=== PATIENT | female | born 1960 | race Caucasian/White ===

== ENCOUNTER → 2020-12-17 | Outpatient (CLI) | payer BC ==
--- NOTE | 2020-12-17 15:44 | REP ---
INDICATION: PAIN. COMPARISON: None. TECHNIQUE: Four views bilateral FINDINGS: Right foot: Mild degenerative change seen throughout the right foot. 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 There are large plantar and retrocalcaneal heel spurs. Left foot: Mild degenerative change seen throughout the left foot. There is a bipartite type 2 os navicular. Large plantar and retrocalcaneal spurs are present. IMPRESSION: Chronic changes seen bilateral <Electronically signed by Alexandre Chatman > 12/17/20 1807
--- NOTE | 2020-12-17 15:46 | REP ---
INDICATION: PAIN. COMPARISON: None. TECHNIQUE: Four views each hand FINDINGS: Right hand: There is mild to moderate asymmetric intra digital joint space narrowing particularly affecting the D IP joint of the digit. Where there is prominent marginal osteophytosis. Similar degenerative changes seen involving the interphalangeal joint of the 1st digit. Tiny marginal osteophytes are seen involving the D IP joints of the remainder of the digits. There are no shaylee marginal erosions. There is no periarticular osteopenia. There is no acute fracture. Degenerative changes seen involving the wrist. Left hand: There is moderate asymmetric intra digital joint space narrowing particularly affecting the D IP joint of the 5th digit. Small marginal osteophytes involving all D IP joints. Similar changes are seen involving the interphalangeal joint of the 1st digit. There is no periarticular osteopenia. There are no shaylee marginal erosions. Chronic changes are seen involving the wrist. IMPRESSION: Bilateral chronic changes <Electronically signed by Alexandre Chatman > 12/17/20 1619
[2020-12-17 17:02] LABS: BASO # 0.1 10^3/uL (0.0-0.2); BASO % 0.8 % (0.0-1.0); EOS # 0.1 10^3/uL (0.0-0.5); EOS % 0.7 % (0.0-3.0); HEMATOCRIT 35.5 % (36.0-47.0); HEMOGLOBIN 11.5 g/dl (12.0-15.5); LYMPH # 3.3 10^3/uL (1.5-5.0); LYMPH % 35.4 % (24.0-44.0); MEAN CORPUSCULAR HEMOGLOBIN 29.7 pg (27.0-33.0); MEAN CORPUSCULAR HGB CONC 32.4 g/dl (32.0-36.5); MEAN CORPUSCULAR VOLUME 91.7 fl (80.0-96.0); MONO # 0.7 10^3/uL (0.0-0.8); NEUTROPHILS # 5.3 10^3/uL (1.5-8.5); NEUTROPHILS % 55.9 % (36.0-66.0); PLATELET COUNT, AUTOMATED 309 10^3/uL (150-450); RED BLOOD COUNT 3.87 10^6/uL (4.00-5.40); WHITE BLOOD COUNT 9.4 10^3/uL (4.0-10.0)
[2020-12-17 17:06] LABS: APPEARANCE, URINE CLEAR (CLEAR); BACTERIA, URINE AUTO NEGATIVE (NEGATIVE); BILIRUBIN, URINE AUTO NEGATIVE (NEGATIVE); BLOOD, URINE BLOOD NEGATIVE (NEGATIVE); COLOR, URINE YELLOW (YELLOW); GLUCOSE, URINE (UA) AUTO NEGATIVE (NEGATIVE); KETONE, URINE AUTO NEGATIVE (NEGATIVE); LEUKOCYTE ESTERASE, URINE AUTO TRACE (NEGATIVE); MUCUS, URINE SMALL (NEGATIVE); NITRITE, URINE AUTO NEGATIVE (NEGATIVE); PROTEIN, URINE AUTO NEGATIVE (NEGATIVE); RBC, URINE AUTO 1 /HPF (0-3); SPECIFIC GRAVITY URINE AUTO 1.018 (1.002-1.035); SQUAMOUS EPITHELIAL CELL UR AU 5 /HPF (0-6); UROBILINOGEN, URINE AUTO 0.2 mg/dL (0.0-2.0); WBC, URINE AUTO 6 /HPF (0-3)
[2020-12-17 17:23] LABS: TOTAL PROTEIN,RANDOM URINE 21.5 MG/DL (0.0-12.0)
[2020-12-17 17:24] LABS: ALBUMIN 3.7 GM/DL (3.2-5.2); ALT/SGPT 15 U/L (12-78); BLOOD UREA NITROGEN 27 MG/DL (7-18); CALCIUM LEVEL 9.1 MG/DL (8.8-10.2); CARBON DIOXIDE LEVEL 26 MEQ/L (21-32); CHLORIDE LEVEL 111 MEQ/L (98-107); COMPLEMENT C3 129 MG/DL (90-180); COMPLEMENT C4 26 MG/DL (10-40); CREATININE FOR GFR 1.53 MG/DL (0.55-1.30); GLOMERULAR FILTRATION RATE 36.6 (>45); GLUCOSE, FASTING 116 MG/DL (70-100); SODIUM LEVEL 143 MEQ/L (136-145); TOTAL PROTEIN 7.1 GM/DL (6.4-8.2)
[2020-12-17 17:30] LABS: ERYTHROCYTE SEDIMENTATION RATE 44 mm/hr (0-30)
[2020-12-17 17:32] LABS: THYROGLOBULIN ANTIBODY < 15.0 U/ML (<60.0)
== END ==
LOC: M PLAIMG 14:51
PROVIDERS: ATTEND Internal Medicine Rheumatology
DX: M79.641 Pain in right hand (principal); M79.642 Pain in left hand; R76.8 Other specified abnormal immunological findings in serum; M79.671 Pain in right foot; M79.672 Pain in left foot